=== PATIENT | female | born 2000 | race Caucasian/White ===

== ENCOUNTER 2021-10-30 20:40 | Emergency (ER) | payer BC ==
[~2021-10-30] VITALS: Ht 177.8 cm; Wt 72.6 kg
--- NOTE | 2021-10-30 20:50 | NUR ---
pt ambulated to room 3 c/o fever and abd pain.
--- NOTE | 2021-10-30 20:59 | NUR ---
pt ambulated to bathroom with steady gait, pt to provide urine sample.
[2021-10-30 21:12] LABS: *BILIRUBIN,URIN NEGATIVE (NEGATIVE); *CLARITY,URINE CLEAR (CLEAR); *COLOR,URINE YELLOW (YELLOW); *KETONES,URINE TRACE (NEGATIVE); *UROBILINOGEN,URINE 0.2 E.U./dl (NORMAL); LEUKOCYTE ESTERASE ,URINE NEGATIVE (NEGATIVE); NITRITE, URINE NEGATIVE (NEGATIVE); PH,URINE 6.5 (5.0-8.0); UGLUCOSE NEGATIVE (NEGATIVE)
[2021-10-30 21:23] LABS: *BLOOD, URINE TRACE (NEGATIVE)
[2021-10-30 21:27] LABS: BACTERIA,URINE MODERATE /HPF (NONE SEEN); SQUAMOUS EPITHELIAL CELL,UR MODERATE /HPF (NONE SEEN)
[2021-10-30] MEDS ORDERED: IV NS 1000 ML 1,000 ML IV ONE (21:30)
[2021-10-30 21:52] LABS: HEMATOCRIT 40.3 % (31.2-41.9); MEAN CORPUSCULAR HEMOGLOBIN 33.3 uug (24.7-32.8); MEAN CORPUSCULAR VOLUME 91.4 fL (75.5-95.3); PLATELET COUNT (AUTO) 235 K/uL (179-408)
[2021-10-30 21:54] LABS: POTASSIUM 3.4 mmol/L (3.5-5.1)
[2021-10-30 22:01] LABS: BILIRUBIN,DIRECT 0.2 mg/dL (0.0-0.2); BILIRUBIN,TOTAL 0.7 mg/dL (0.2-1.0); TOTAL PROTEIN, SERUM 7.5 g/dL (6.4-8.2)
[2021-10-30] MEDS ORDERED: POTASSIUM BICARBONATE/CIT AC 25 MEQ TABLET.EFF PO ONE (22:45)
[2021-10-30] MEDS ORDERED: POTASSIUM BICARBONATE/CIT AC 25 MEQ TABLET.EFF ONE (22:47)
[2021-10-30] MEDS ORDERED: CEFTRIAXONE 1 G in IV DEXTROSE 5% 50 ML IV ONE (23:45)
[2021-10-30] MEDS ORDERED: AZIT250T13 PO (23:51)
[2021-10-30] MEDS ORDERED: CEFU250T85 PO (23:51)
[2021-10-30] MEDS ORDERED: CEFTRIAXONE /D5W 50ML IVPB **ER PYXIS IV ONE (23:56)
[2021-10-31 00:28] VITALS: BP 100/58
--- NOTE | 2021-10-31 00:28 | NUR ---
Patient discharged to home in stable condition. Written and verbal after care instructions given. Patient verbalizes understanding of instructions. Stressed follow up or return to ER for worsening s/s.
== END 2021-10-31 00:28 | disposition home or self-care (01) ==
LOC: ER 20:50
DX: J20.9 Acute bronchitis, unspecified (principal); E87.6 Hypokalemia; Z20.822 Contact with and (suspected) exposure to COVID-19; I45.10 Unspecified right bundle-branch block; R94.31 Abnormal electrocardiogram [ECG] [EKG]; Z90.49 Acquired absence of other specified parts of digestive tract; Z87.442 Personal history of urinary calculi
CPT/HCPCS: 36415; 71045; 80048; 80076; 81001; 85025; 87040; 87086; 87426; 93005; 96361; 96365; 99285; J0696; J7040; A4663